=== PATIENT | male | born 1960 | race Caucasian/White ===

== ENCOUNTER 2017-08-27 13:48 | Emergency (ER) | payer OTHER ==
[2017-08-27] MEDS: KETOROLAC 15 MG INJ IM (17:02)
== END 2017-08-27 17:55 | disposition home or self-care (01) ==
LOC: FTE 13:48
DX: S13.9XXA Sprain of joints and ligaments of unspecified parts of neck, initial encounter (principal); S09.90XA Unspecified injury of head, initial encounter; W11.XXXA Fall on and from ladder, initial encounter; Y92.9 Unspecified place or not applicable
CPT/HCPCS: 70450; 72125; 96372; 99285-25

== ENCOUNTER 2017-09-03 13:38 | Emergency (ER) | payer OTHER ==
[2017-09-03] MEDS: SOD CHLORIDE 0.9% 500 ML IV (17:26)
[2017-09-03] MEDS: ALBUTEROL 0.083% (NEB) 2.5 MG/3 ML AMP HHN (17:50)
[2017-09-03] MEDS: FAMOTIDINE 20 MG TAB PO (17:50)
[2017-09-03] MEDS: BELLADONNA/PHENOBARBITAL TAB PO (17:50)
[2017-09-03] MEDS: LIDOCAINE/MYLANTA 40 ML BTL PO (17:50)
[2017-09-03] MEDS: KETOROLAC 15 MG INJ IV (17:51)
[2017-09-03] MEDS: ONDANSETRON 4 MG INJ IV (17:51)
[2017-09-03 17:57] LABS: WHITE BLOOD COUNT 4.3 10^3/ul (4.8-10.8)
[2017-09-03 17:57] LABS: HEMOGLOBIN 13.6 g/dl (14.0-18.0); MEAN CORPUSCULAR HEMOGLOBIN 30.4 pg (29.0-33.0); MEAN CORPUSCULAR VOLUME 89.3 fl (82.0-101.0); MEAN PLATELET VOLUME 10.5 fl (7.4-10.4); PLATELET COUNT 157 10^3/UL (140-415); RED BLOOD COUNT 4.48 10^6/ul (4.70-6.10); RED CELL DISTRIBUTION WIDTH 12.4 % (11.5-14.5)
[2017-09-03 18:03] LABS: ADD MAN DIFF? YES
[2017-09-03 18:15] LABS: ALANINE AMINOTRANSFERASE 39 IU/L (13-69); ALBUMIN 4.7 g/dl (3.3-4.9); ALBUMIN/GLOBULIN RATIO 1.34; ALKALINE PHOSPHATASE 76 IU/L (42-121); ANION GAP 15 (8-16); ASPARTATE AMINO TRANSFERASE 32 IU/L (15-46); BILIRUBIN,INDIRECT 0.2 mg/dl (0-1.1); BILIRUBIN,TOTAL 0.2 mg/dl (0.2-1.3); BLOOD UREA NITROGEN 16 mg/dl (7-20); CARBON DIOXIDE 28 mmol/L (21-31); CHLORIDE 103 mmol/L (97-110); CREATININE 0.96 mg/dl (0.61-1.24); GLUCOSE 94 mg/dl (70-220); LIPASE 282 U/L (23-300); POTASSIUM 4.5 mmol/L (3.5-5.1); SODIUM 141 mmol/L (135-144); TOTAL PROTEIN 8.2 g/dl (6.1-8.1)
[2017-09-03 18:35] LABS: TROPONIN-I < 0.012 ng/ml (0.00-0.12)
[2017-09-03 18:43] LABS: BAND NEUTROPHILS #M 0.1 10^3/ul (0.0-0.6); BAND NEUTROPHILS % (M) 4 % (0-4); BASOPHILS % (M) 1 % (0-2); EOSINOPHILS % (M) 2 % (0-7); LYMPHOCYTES #M 0.9 10^3/ul (0.8-2.9); LYMPHOCYTES % (M) 22 % (15-51); MONOCYTE #M 0.9 10^3/ul (0.3-0.9); MONOCYTES % (M) 21 % (0-11); PLATELET ESTIMATE NORMAL; SEG NEUT #M 2.2 10^3/ul (1.6-7.5); SEGMENTED NEUTROPHILS (M) % 50 % (39-77); SMUDGE%M 8 % (0-0)
== END 2017-09-03 19:19 | disposition home or self-care (01) ==
LOC: E/R 13:38
DX: J20.9 Acute bronchitis, unspecified (principal); R10.13 Epigastric pain
CPT/HCPCS: 36415; 71045; 80053; 83690; 84484; 85025; 93005; 94664; 96374; 96375; 99285-25